=== PATIENT | female | born 2000 | race Two or more races ===

== ENCOUNTER 2020-07-03 00:13 | Observation (INO) | payer OTHER ==
[~2020-07-03] VITALS: Ht 147.3 cm; Wt 50.3 kg
[2020-07-03] MEDS ORDERED: LACTATED RINGER'S 1,000 ML IV STA (00:36)
[2020-07-03] MEDS ORDERED: TERBUTALINE SULFATE 1 MG/ML 1ML VIAL SC ONE (00:49)
[2020-07-03 01:14] LABS: Urine Bacteria FEW /hpf (None Seen); Urine Blood Negative /uL (Negative); Urine Mucus FEW (None Seen); Urine Specific Gravity 1.013 (1.001-1.035); Urine WBC 15 /hpf (0 - 5)
[2020-07-03] MEDS ORDERED: TERBUTALINE SULFATE 1 MG/ML 1ML VIAL SC SCH (01:15)
[2020-07-03] MEDS ORDERED: NIFEdipine 10 MG CAP PO STA (01:35)
== END 2020-07-03 05:41 | disposition home or self-care (01) ==
LOC: LDRP 00:13
PROVIDERS: ADMIT Specialist; ATTEND Specialist
DX: O62.9 Abnormality of forces of labor, unspecified (principal); Z3A.20 20 weeks gestation of pregnancy
CPT/HCPCS: 59025; 81001; 81002; 96360; 96372; G0378; J3105